=== PATIENT | male | born 1950 | race Caucasian/White ===

== ENCOUNTER → 2017-04-05 | Outpatient (CLI) | payer OTHER ==
[~2017-04-05] MED LIST: ACETAMINOPHEN325 M1 PO; ATRIPLA TABLET1 EACH PO; BACTRIM DS TAB1 EACH PO; COUMADIN 5 MG TA5 M1 PO; ENOXAPARIN80 MG/0.8 SUBQ; JANTOVEN7.5 MG PO; TOPROL XL25 MG PO
[2017-04-05 14:39] LABS: HEMATOCRIT 50.9 % (42.0-52.0); HEMOGLOBIN 17.6 gm/dL (14.0-18.0); MCH 32.5 pg (26.0-34.0); MCHC 34.5 g/dL (28.0-37.0); MCV 94.2 fL (80.0-100.0); RBC 5.41 mil/uL (4.50-6.00); RDW 13.6 % (10.5-14.5); WBC 5.6 thou/uL (4.0-11.0)
[2017-04-05 14:57] LABS: ALBUMIN 3.7 g/dL (3.4-5.0); CALCIUM 9.2 mg/dL (8.5-10.1); POTASSIUM 4.4 mmol/L (3.5-5.1); TOTAL BILIRUBIN 0.4 mg/dL (<0.1-1.0); TOTAL PROTEIN 7.7 g/dL (6.4-8.2)
== END ==
LOC: SEN 11:41
PROVIDERS: Internal Medicine Infectious Disease
DX: Z01.812 Encounter for preprocedural laboratory examination (principal)